=== PATIENT | male | born 1985 | race Caucasian/White ===

== ENCOUNTER 2020-02-23 07:20 | Day surgery (SDC) | payer OTHER ==
[~2020-02-23] VITALS: Ht 165.1 cm; Wt 90.3 kg
[2020-02-23 08:15] VITALS: BP 152/77
[2020-02-23 11:43] VITALS: BP 128/92
== END 2020-02-23 11:15 | disposition home or self-care (01) ==
LOC: GI 07:20
PROVIDERS: ATTEND Internal Medicine Gastroenterology
DX: K22.2 Esophageal obstruction (principal); Z79.82 Long term (current) use of aspirin
CPT/HCPCS: 43235; J1200; J1610; J2250; J2310; J3010; J3490